=== PATIENT | male | born 1985 | race Caucasian/White ===

== ENCOUNTER 2018-03-01 00:48 | Emergency (ER) | payer BC ==
[2018-03-01 00:54] VITALS: BP 159/88; PULSE 80; TEMP 98; BMI 48.2
--- NOTE | 2018-03-01 01:23 | PDOC ---
History of Present Illness - General Chief Complaint: Pain, Acute Stated Complaint: PINCHING FEELING IN SINUS Time Seen by Provider: 03/01/18 00:50 - History of Present Illness Initial Comments: 03/01/18 01:17 32 M with no PMH presenting to ED with elevated BP at home. Pt states that he felt a "burning' sensation in his nose and states that his nose was runny. He then felt bodyaches in his shoulders bilaterally. Pt decided to check his BP at this time but states that he used his parent's BP cuff, which did not fit him correctly (too small). Pt states the cuff read 170 systolic, which scared him and prompted him to come to the ER. Pt denies any CP/SOB/headache. States that he still has a mild burning in his nose but denies any other symptoms. Past History - Past Medical History Allergies/Adverse Reactions: Allergies Allergy/AdvReac Type Severity Reaction Status Date / Time No Known Allergies Allergy Verified 03/01/18 00:49 Home Medications: Ambulatory Orders NK [No Known Home Medication] 03/01/18 COPD: No HTN: Yes - Suicide/Smoking/Psychosocial Hx Smoking History: Never smoked Have you smoked in the past 12 months: No Information on smoking cessation initiated: No Hx Alcohol Use: No Drug/Substance Use Hx: No Review of Systems - Review of Systems Comments:: 03/01/18 01:20 "GENERAL/CONSTITUTIONAL: No fever or chills. No weakness. HEAD, EYES, EARS, NOSE AND THROAT: No change in vision. No ear pain or discharge. No sore throat. CARDIOVASCULAR: No chest pain, no shortness of breath, no loss of consciousness RESPIRATORY: No cough, wheezing, or hemoptysis. GASTROINTESTINAL: No nausea, vomiting, diarrhea or constipation. GENITOURINARY: No dysuria, frequency, or change in urination. MUSCULOSKELETAL: No joint or muscle swelling or pain. No neck or back pain. SKIN: No rash NEUROLOGIC: No vertigo, no change in strength/sensation. ENDOCRINE: No increased thirst. No abnormal weight change. HEMATOLOGIC/LYMPHATIC: No anemia, easy bleeding, or history of blood clots. ALLERGIC/IMMUNOLOGIC: No hives or skin allergy. *Physical Exam - Vital Signs Last Vital Signs Temp Pulse Resp BP Pulse Ox 98 F 80 15 159/88 100 03/01/18 00:50 03/01/18 00:50 03/01/18 00:50 03/01/18 00:50 03/01/18 00:50 - Physical Exam Comments: 03/01/18 01:20 "GENERAL: Awake, alert, and fully oriented, in no acute distress. HEAD: No signs of trauma EYES: PERRLA, EOMI, sclera anicteric, conjunctiva clear ENT: Auricles normal inspection, hearing grossly normal, nares patent, oropharynx clear without exudates. Moist mucosa NECK: Nontender, no stepoffs, Normal ROM, supple, no lymphadenopathy, JVD, or masses LUNGS: Breath sounds equal, clear to auscultation bilaterally. No wheezes, and no crackles HEART: Regular rate and rhythm, normal S1 and S2, no murmurs, rubs or gallops ABDOMEN: Soft, nontender, normoactive bowel sounds. No guarding, no rebound. No masses EXTREMITIES: Normal range of motion, no edema. No clubbing or cyanosis. No cords, erythema, or tenderness NEUROLOGICAL: Cranial nerves II through XII intact. 5/5 strength and sensation in all extremities, Normal speech, normal gait, normal cerebellar function SKIN: Warm, Dry, normal turgor, no rashes or lesions noted. Moderate Sedation - Procedure Monitoring Vital Signs: Procedure Monitoring Vital Signs Temperature 98 F 03/01/18 00:50 Pulse Rate 80 03/01/18 00:50 Respiratory Rate 15 03/01/18 00:50 Blood Pressure 159/88 03/01/18 00:50 O2 Sat by Pulse Oximetry (%) 100 03/01/18 00:50 Medical Decision Making - Medical Decision Making 03/01/18 01:20 32 M with elevated BP reading at home after using ill-fitting cuff. BP in ED 159 /88. Pt with no symptoms other than "nose burning" and normal exam at this time. - F/u PMD Pt is well appearing, with normal vitals. Clinically stable for DC at this time. I discussed the physical exam findings, ancillary test results and final diagnoses with the patient. I answered all of the patient's questions. The patient was satisfied with the care received and felt comfortable with the discharge plan and treatment plan. The patient agrees to follow up with the primary care physician within 24-72 hours. *DC/Admit/Observation/Transfer Diagnosis at time of Disposition: Elevated BP without diagnosis of hypertension - Discharge Dispostion Disposition: HOME Condition at time of disposition: Stable - Referrals Referrals: Lane Smith MD [Staff Physician] - - Patient Instructions Additional Instructions: Your blood pressure in the ED today was 159/88. The cuff you used at home was likely not the right size for you and may have given you a falsely elevated reading. Nonetheless, your blood pressure is mildly elevated. You should have it rechecked by your primary doctor. Uncontrolled blood pressure can eventually lead to kidney disease, heart disease , other serious illness. Call the number provided to make an appointment with our primary care clinic within 1 week. If you experience chest pain, shortness of breath, severe headache, or any other concerning symptoms, return to the ER immediately. - Post Discharge Activity - Attestations Physician Attestion: 03/01/18 01:23 I, Dr. Joo Yanez MD, attest that this document has been prepared under my direction and personally reviewed by me in its entirety. I further attest, that it accurately reflects all work, treatment, procedures and medical decision -making performed by me.
== END 2018-03-01 01:25 | disposition home or self-care (01) ==
LOC: FER 00:48
DX: Z01.30 Encounter for examination of blood pressure without abnormal findings (principal)
CPT/HCPCS: 99281-25